=== PATIENT | female | born 1985 | race African-American/Black ===

== ENCOUNTER 2020-06-26 06:28 | Outpatient (REF) | payer OTHER, SELFPAY | END 2020-06-26 06:29 | disposition home or self-care (01) | LOC: HO.LAB 06:28 | PROVIDERS: Visit Provider Internal Medicine | DX: Z20.828 Contact with and (suspected) exposure to other viral communicable diseases (principal) | CPT/HCPCS: C9803; U0003 ==

== ENCOUNTER 2021-08-01 11:28 | Emergency (ER) | payer OTHER, SELFPAY ==
--- NOTE | ~2021-08-01 | XR_ITS ---
EXAMINATION: XR CHEST CLINICAL INFORMATION: SOB COMPARISON: None TECHNIQUE: Frontal view of the chest was obtained. FINDINGS: No significant abnormality is noted involving the heart, lungs, mediastinum, bony thorax or soft tissues. XR/XR chest 1V IMPRESSION: Unremarkable chest examination.
[2021-08-01 11:35] VITALS: BP 108/68; PULSE 92; RESP 18; TEMP 36.1; O2SAT 100; BMI 24.3
--- NOTE | 2021-08-01 11:52 | ED_ITS ---
HPI - URI/Sore Throat General Chief Complaint: Upper Respiratory Symptoms Stated Complaint: Covid symptoms Time Seen by Provider: 08/01/21 11:52 Source: patient Mode of arrival: ambulatory Limitations: no limitations History of Present Illness HPI Narrative: This is a 35-year-old female no known medical history presenting to the emergency department with upper respiratory symptoms including runny nose, congestion, cough, headache x3 days. Patient tells me she has had sick contacts at work, she works at a pharmacy. She has vaccinated against COVID-19 two doses of pfizer no booster yet. She denies fevers, chills, nausea, vomiting, chest pain, shortness of breath. MD elicited complaint: sore throat, rhinorrhea and nasal congestion Onset (ago): day(s) (3) Consistency: constant Severity: moderate Able to tolerate fluids by mouth: Yes Exacerbating factors: nothing Relieving factors: nothing Context: sick contacts Associated symptoms: headache (Feels like her typical, no red flag symptoms. No vision change) and cough (Nonproductive) Treatments prior to arrival: none Related Data Previous Rx's Medication Instructions Recorded albuterol sulfate 90 mcg/actuation 2 inh INHALATION Q4-6H PRN #1 ea 08/01/21 breath activated powder inhaler azithromycin 250 mg tablet See Rx Instructions .ROUTE 08/01/21 .COMPLEX #6 tab Allergies Allergy/AdvReac Type Severity Reaction Status Date / Time No Known Allergies Allergy Verified 08/01/21 11:37 Review of Systems Review of Systems: Constitutional : No Fever, No Chills, positive fatigue, positive Malaise ENT/Mouth : positive sore throat, positive runny nose Eyes: No Discharge Cardiovascular : No Chest Pain, No SOB Respiratory : No Cough, No Sputum Gastrointestinal : No Nausea, No Vomiting, No Diarrhea Genitourinary : No Dysuria, No Urinary Frequency Musculoskeletal : positive Myalgia Skin : No rash Neuro : positive Headache Yes all other systems are reviewed and are negative PMFSH Past Medical History Attestation statement: The following information was validated with the patient. Source: old records reviewed and nursing notes reviewed Medical History No known health problems Social History Social History Advance Directives: No Advance Directives Information Provided: No Patient : No Physical Exam Vital Signs: Vital Signs: Last Vital Signs Temp 97.0 F 08/01/21 11:35 Pulse 92 08/01/21 11:35 Resp 18 08/01/21 11:35 BP 108/68 08/01/21 11:35 Pulse Ox 100 08/01/21 11:35 BMI result Body Mass Index 24.3 VSS Appearance: Alert.? Oriented X3.? No acute distress.? Head: Normocephalic, atraumatic, no step-offs or deformities Eyes: Pupils equal, round and reactive to light.? ENT: Pharynx normal.? Neck: Normal inspection.? Neck supple.? CVS: Normal heart rate and rhythm.? Pulses normal.? Respiratory: No respiratory distress.? Breath sounds normal.? Abdomen: Soft and nontender.? Skin: Skin warm and dry.? Normal skin color.? Normal skin turgor.? Extremities: No lower extremity edema.? No calf ttp. 5/5 strength to bilateral upper and lower extremities Back: No midline tenderness, no C-spine tenderness, full range of motion, no CVA tenderness bilaterally Neuro: Oriented X 3.? No motor deficit.? No sensory deficit. Course Reevaluation(s) Reevaluation #1: COVID negative. However, patient's symptoms consistent with COVID-19 and she has had recent exposures. I have advised her to quarantine, practice good hygiene, social distancing and wear a mask. I have given her strict return precautions and when to return. At this time chest x-ray is pending. I have prescribed her an albuterol inhaler in case she becomes short of breath. Time: 12:38 Reevaluation #2: CXR negative. Patient saturating well on room air even after ambulation. Unlikely PE or ACS is patient does not have chest pain, negative ranjeet sign b/l. She is vaccinated. I have advised her to retest in 2-4 days and return with new or worsening symptoms. I feel comfortable with discharge home. Time: 13:26 MDM - URI/Sore Throat MDM Narrative Medical decision making narrative: 1154 35 yo F no pmhx presents w/ covid like sx X3 days PE benign Plan- covid test. Based off patient's history low suspicion for PE, PERC score of 0. Vital signs are stable unlikely that this is a pneumonia, patient is not reporting a productive cough, she is afebrile. Unlikely ACS. Medical Records Attestation: I reviewed the patient's medical records. Lab Data Attestation: I reviewed the patient's lab results. Labs: Lab Results 08/01/21 Range/Units 11:40 COVID-19 ([facility]BI) Negative (Negative) COVID-19 Clin Com See Note Critical Care Time Critical Care Time Critical Care Time: No Discharge Plan Discharge Clinical Impression: Acute viral syndrome Patient Disposition: Home, Self-Care Instructions: COVID-19 (Coronavirus Disease 2019) (ED) Additional Instructions: Take your medications as prescribed. If you were prescribed antibiotics today, it is important that you take your medication to their entirety, do not skip any doses, do not finish them early. Follow-up with your primary care provider this week. Return to the emergency department with new or worsening symptoms. Such as chest pain, sob, nausea, vomiting, weakness In case of emergency call 911 You tested negative for covid today, however I recommend that you retest in 2-4 days You can purchase a pulse oximeter from your local pharmacy or grocery store, and monitor your oxygen saturation if it goes below 94% you should return to the emergency department for further evaluation. If You Test Positive for COVID-19 (Isolate) Everyone, regardless of vaccination status. * Stay home for 5 days. * If you have no symptoms or your symptoms are resolving after 5 days, you can leave your house. * Continue to wear a mask around others for 5 additional days. If you have a fever, continue to stay home until your fever resolves. If You Were Exposed to Someone with COVID-19 (Quarantine) If you: Have been boosted OR Completed the primary series of Pfizer or Moderna vaccine within the last 6 months OR Completed the primary series of J&J vaccine within the last 2 months * Wear a mask around others for 10 days. * Test on day 5, if possible. If you develop symptoms get a test and stay home. If you: Completed the primary series of Pfizer or Moderna vaccine over 6?months ago and are not boosted OR Completed the primary series of J&J over 2 months ago and are not boosted OR Are unvaccinated * Stay home for 5 days. After that continue to wear a mask around others for 5 additional days. * If you can?t quarantine you must wear a mask for 10 days. * Test on day 5 if possible. If you develop symptoms get a test and stay home Prescriptions: New albuterol sulfate 90 mcg/actuation aerosol powdr breath activated 2 inh inhalation Q4-6H PRN (Reason: shortness of breath) Qty: 1 RF: 0 azithromycin 250 mg tablet See Rx Instructions .ROUTE .COMPLEX Qty: 6 RF: 0 Referrals: Physician,None [Primary Care Provider] - 2 days Stand Alone Forms: Work/School Release
[2021-08-01 12:19] LABS: COVID-19 Test Negative (Negative); IDNOW Serial# 9DD0AD1C
[2021-08-01] MEDS: Ketorolac Tromethamine 30 MG/ML VIAL IM (12:50)
== END 2021-08-01 13:40 | disposition home or self-care (01) ==
PROVIDERS: Emergency Provider Internal Medicine
DX: B34.9 Viral infection, unspecified (principal); R51.9 Headache, unspecified; Z20.822 Contact with and (suspected) exposure to COVID-19; Z79.899 Other long term (current) drug therapy
CPT/HCPCS: 71045; 87635; 96372; 99283; 99284; J1885